=== PATIENT | female | born 1960 | race African-American/Black ===

== ENCOUNTER 2018-01-02 06:12 | Day surgery (SDC) | payer OTHER ==
[2018-01-02] MEDS ORDERED: SOD CHLORIDE 0.9% 1,000 ML IV (06:30)
[2018-01-02] MEDS ORDERED: ROCURONIUM 50 MG INJ ×2 (07:00→08:48)
[2018-01-02] MEDS ORDERED: LACTATED RINGER'S 1,000 ML IV (08:33)
[2018-01-02] MEDS ORDERED: POLYMYXIN/BACITRACIN 1L IRRIG (08:38)
[2018-01-02] MEDS ORDERED: FENTAnyl 50 MCG/ML VIAL (08:48)
[2018-01-02] MEDS ORDERED: PROPOFOL 20 ML (08:48)
[2018-01-02] MEDS ORDERED: MIDAZOLAM 1 MG/ML 2 ML INJ (08:49)
[2018-01-02] MEDS ORDERED: LIDOCAINE 1% (MDV) 20 ML INJ (08:49)
[2018-01-02] MEDS ORDERED: HYDROCODONE/APAP (10/325) TAB PO (09:00)
[2018-01-02] MEDS ORDERED: CEFAZOLIN 1 GM INJ (09:03)
[2018-01-02] MEDS ORDERED: ONDANSETRON 4 MG INJ (09:03)
[2018-01-02] MEDS ORDERED: DEXAMETHASONE 4 MG/ML 1 ML INJ (09:04)
[2018-01-02] MEDS ORDERED: HYDROmorphONE 2 MG/ML SYG (09:15)
[2018-01-02] MEDS: BUPIVACAINE 0.25%/EPI (MDV) 50 ML VIAL INJ (09:27)
[2018-01-02] MEDS: EPINEPHrine 1 MG INJ (09:28)
[2018-01-02] MEDS: LIDOCAINE 1%/EPI 30 ML INJ (09:29)
[2018-01-02] MEDS ORDERED: LABETALOL HCL 20MG INJ (09:48)
[2018-01-02] MEDS ORDERED: hydrALAzine 20 MG INJ (09:56)
[2018-01-02] MEDS ORDERED: PHENYLephrine (100 MCG/ML) 5ML SYG (10:23)
[2018-01-02] MEDS: BUPIVACAINE LIPOSOME/PF 266 MG/20 ML VIAL INFIL (10:45)
[2018-01-02] MEDS ORDERED: HYDROmorphONE 1 MG/5 ML IV SYRINGE IV ×2 (12:30→12:39)
[2018-01-02] MEDS ORDERED: LABETALOL HCL 20MG INJ IV (12:30)
[2018-01-02] MEDS ORDERED: hydrALAzine 20 MG INJ IV (12:30)
[2018-01-02] MEDS ORDERED: morphine (1 MG/ML) 10ML SYRINGE IV ×2 (12:30)
[2018-01-02] MEDS: HYDROmorphONE 1 MG/5 ML IV SYRINGE IV (12:49)
== END 2018-01-02 15:15 | disposition home or self-care (01) ==
LOC: SDS 06:12
DX: N62 Hypertrophy of breast (principal); M54.2 Cervicalgia; I10 Essential (primary) hypertension; R94.31 Abnormal electrocardiogram [ECG] [EKG]; Z87.891 Personal history of nicotine dependence
CPT/HCPCS: 19318; 84703; 88307; 93005